=== PATIENT | male | born 1955 | race Caucasian/White ===

== ENCOUNTER 2021-03-30 00:29 | Inpatient (IN) ==
[2021-03-30] MEDS ORDERED: Heparin 1,000 UNIT/ML 10 ml (10,000 UNITS) CATHLAB/DIALYSIS ONE (00:50)
[2021-03-30] MEDS ORDERED: fentaNYL 100 mcg/2 ml 50 MCG/ML VIAL ONE (00:50)
[2021-03-30] MEDS ORDERED: VERAPAMIL 2.5 MG/ML 2 ML VIAL ** 5 mg/2 ml ONE (00:50)
[2021-03-30] MEDS ORDERED: Midazolam 5 mg/5 ml VIAL 1 mg/ml 5 ml VIAL (5 mg) ONE ×2 (00:50→05:42)
[2021-03-30] MEDS ORDERED: nitroGLYCERIN DRIP 25,000 MCG/250 ML BTL ONE (00:51)
[2021-03-30] MEDS ORDERED: Heparin 2 UNITS/ML 1000 mls 2,000 ML IV ONE (00:51)
[2021-03-30] MEDS ORDERED: Iohexol 350 (CONTRAST) 200 ML MDV IV ONE ×2 (00:51→01:11)
[2021-03-30] MEDS ORDERED: Lidocaine 1% VIAL 10 MG/ML VIAL ONE (00:51)
[2021-03-30] MEDS ORDERED: Heparin - STEMI 5,000 UNITS/ML 1 ml VIAL IV ONE (01:03)
[2021-03-30 01:16] LABS: Hematocrit 37 % (42-52); Hemoglobin 11.4 g/dL (14.0-18.0); Mean Corpuscular HGB Conc 31 g/dL (31-36); Mean Corpuscular Hemoglobin 32 pg (27-31); Mean Corpuscular Volume 102 fL (80-94); Mean Platelet Volume 10.3 fL (7.4-10.4); Platelet Count 160 10^3/uL (150-450); Red Blood Count 3.57 10^6 /uL (4.18-5.48); Red Cell Distribution Width 15 % (10-15); White Blood Count 19.3 10^3/uL (3.5-10.8)
[2021-03-30 01:34] LABS: ALT 149 U/L (7-52); AST 189 U/L (13-39); Albumin 2.8 g/dL (3.2-5.2); Albumin/Globulin Ratio 1.1 (1-3); Alkaline Phosphatase 140 U/L (35-149); Blood Urea Nitrogen 20 mg/dL (6-24); Calcium 8.3 mg/dL (8.6-10.3); Chloride 102 mmol/L (101-111); Globulin 2.6 g/dL (2-4); Glucose 446 mg/dL (70-100); LDL Cholesterol Direct 62 mg/dL; Magnesium 2.5 mg/dL (1.9-2.7); Potassium 4.2 mmol/L (3.5-5.0); Sodium 134 mmol/L (135-145); Total Protein 5.4 g/dL (6.4-8.9)
[2021-03-30 01:34] LABS: Rapid COVID-19 Molecular Undetected (Undetected)
[2021-03-30] MEDS ORDERED: Bivalirudin 250 MG VIAL ONE (01:38)
[2021-03-30 01:39] LABS: Activated Partial Thrombo Time 49.9 seconds (26.0-38.0); INR 1.3 (0.86-1.15)
[2021-03-30 01:52] LABS: Troponin I 4.06 ng/mL (<0.03)
[2021-03-30 01:54] LABS: Anion Gap 18 mmol/L (2-11); CO2 Carbon Dioxide 14 mmol/L (22-32)
[2021-03-30] MEDS ORDERED: Phenylephrine 40 mcg/mL 10mL (400mcg) SYRINGE ONE (02:03)
[2021-03-30] MEDS ORDERED: Propofol 10 mg/ml 100 ML BTL 100 ML ONE ×2 (02:17→14:20)
[2021-03-30 02:25] LABS: PCO2 Arterial 50 mmHg (35-45); PO2 Arterial 104 mmHg (80-100)
[2021-03-30] MEDS ORDERED: NS 0.9% 1000 ml BAG 1,000 ML IV SCH (02:45)
[2021-03-30] MEDS ORDERED: Furosemide 20 mg/2 ml IV VIAL IV ONE ×2 (02:47→03:58)
[2021-03-30] MEDS ORDERED: Furosemide 20 mg/2 ml IV VIAL ONE (03:14)
[2021-03-30 03:43] LABS: Burr Cells 3+
[2021-03-30 03:50] LABS: Hematocrit 38 % (42-52); Hemoglobin 12.4 g/dL (14.0-18.0); Mean Corpuscular HGB Conc 32 g/dL (31-36); Mean Corpuscular Hemoglobin 31 pg (27-31); Mean Corpuscular Volume 97 fL (80-94); Platelet Count 224 10^3/uL (150-450); Red Blood Count 3.96 10^6 /uL (4.18-5.48); Red Cell Distribution Width 14 % (10-15); White Blood Count 29.6 10^3/uL (3.5-10.8)
[2021-03-30] MEDS ORDERED: Dextrose 50% Syringe 50 ml 25 GM/50 ML SYRINGE IV PUSH PRN (03:53)
[2021-03-30 03:55] LABS: PCO2 Arterial 45 mmHg (35-45); PO2 Arterial 114 mmHg (80-100)
[2021-03-30 03:56] LABS: ABS Basophils 0.1 10^3/ul (0-0.2); ABS Eosinophils 0.5 10^3/ul (0-0.6); ABS Lymphocytes 7.7 10^3/ul (1.0-4.8); ABS Monocytes 1.1 10^3/ul (0-0.8); Eosinophil % 2.4 %; Lymphocyte % 39.7 %; Nucleated Red Blood Cells % 0.1
[2021-03-30 03:58] LABS: ABS Basophils 0.1 10^3/ul (0-0.2); ABS Eosinophils 0.2 10^3/ul (0-0.6); ABS Lymphocytes 2.2 10^3/ul (1.0-4.8); ABS Monocytes 1.7 10^3/ul (0-0.8); ABS Neutrophils 25.2 10^3/ul (1.5-7.7); Eosinophil % 0.8 %; Lymphocyte % 7.5 %
[2021-03-30] MEDS ORDERED: Propofol 10 mg/ml 100 ML BTL 100 ML IV SCH ×2 (04:00→16:00)
[2021-03-30 04:07] LABS: ALT 267 U/L (7-52); Albumin 3.2 g/dL (3.2-5.2); Albumin/Globulin Ratio 1.2 (1-3); Alkaline Phosphatase 189 U/L (35-149); Blood Urea Nitrogen 21 mg/dL (6-24); CO2 Carbon Dioxide 18 mmol/L (22-32); Calcium 7.9 mg/dL (8.6-10.3); Chloride 101 mmol/L (101-111); Globulin 2.7 g/dL (2-4); Glucose 405 mg/dL (70-100); Sodium 130 mmol/L (135-145); Total Protein 5.9 g/dL (6.4-8.9)
[2021-03-30 04:25] LABS: Troponin I 7.66 ng/mL (<0.03)
[2021-03-30 04:44] LABS: Anion Gap 11 mmol/L (2-11)
[2021-03-30] MEDS: Chlorhexidine MOUTHWASH 0.12% 15 ML UDC TOPICAL SCH ×5 (05:03→20:53)
[2021-03-30] MEDS: Midazolam 50 MG VIAL IV DRIP 50 ML IV SCH ×3 (05:10→19:19)
[2021-03-30] MEDS ORDERED: Midazolam 5 mg/5 ml VIAL 1 mg/ml 5 ml VIAL (5 mg) IV SLOW PU ONE (05:38)
[2021-03-30 06:24] LABS: Potassium Redraw 5.7 mmol/L (3.5-5.0)
[2021-03-30 07:21] LABS: Glucose Confirmatory 409 mg/dL (70-100)
[2021-03-30] MEDS: Famotidine IV 10 MG/ML 2 ml VIAL (20 mg) IV SLOW PU SCH ×2 (07:54→20:53)
[2021-03-30] MEDS ORDERED: Etomidate 20 mg/10 ml 2 MG/ML 10 ml VIAL ONE (09:11)
[2021-03-30] MEDS ORDERED: Rocuronium 50 mg VIAL 10 mg/ml 5 ml VIAL (50 mg) ONE (09:11)
[2021-03-30] MEDS ORDERED: Perflutren Lipid Microsphere 3 ML VIAL ONE (10:18)
[2021-03-30] MEDS ORDERED: Meperidine 50 mg/ml SYRINGE 1 ml IV ONE ×2 (10:26→13:42)
[2021-03-30] MEDS ORDERED: Meperidine 50 mg/ml SYRINGE 1 ml IV PRN (10:37)
[2021-03-30 13:23] LABS: PCO2 Arterial 38 mmHg (35-45); PO2 Arterial 88 mmHg (80-100)
[2021-03-30] MEDS ORDERED: Meperidine 50 mg/ml SYRINGE 1 ml ONE (13:45)
[2021-03-30 14:04] LABS: ALT 256 U/L (7-52); Albumin 3.6 g/dL (3.2-5.2); Albumin/Globulin Ratio 1.2 (1-3); Alkaline Phosphatase 168 U/L (35-149); Blood Urea Nitrogen 26 mg/dL (6-24); CO2 Carbon Dioxide 20 mmol/L (22-32); Calcium 8.4 mg/dL (8.6-10.3); Chloride 104 mmol/L (101-111); Glucose 268 mg/dL (70-100); Sodium 136 mmol/L (135-145); Total Protein 6.6 g/dL (6.4-8.9)
[2021-03-30 14:05] LABS: Anion Gap 12 mmol/L (2-11)
[2021-03-30 15:18] LABS: Potassium Redraw 4.9 mmol/L (3.5-5.0)
[2021-03-30] MEDS: Enoxaparin 40 MG/0.4 ML SYR SUBCUT SCH (17:05)
[2021-03-30] MEDS ORDERED: Piperacillin/Tazobac ADVAN 3.375 GM in NS 0.9% 100 ml BAG 100 ML IV ONE (17:30)
[2021-03-30] MEDS ORDERED: Zosyn per Pharmacy NOTE FOLLOW UP SCH (18:00)
[2021-03-30] MEDS: Propofol 10 mg/ml 100 ML BTL 100 ML IV SCH (19:30)
[2021-03-30 23:44] LABS: Urine Appearance Turbid; Urine Bilirubin Negative (Negative); Urine Blood 3+ (Negative); Urine Color Yellow; Urine Glucose Negative (Negative); Urine Ketones Negative (Negative); Urine Nitrite Negative (Negative); Urine Protein 2+(100 mg/dL) (Negative); Urine Specific Gravity 1.032 (1.002-1.030); Urine Urobilinogen Negative (Negative)
[2021-03-30 23:59] LABS: Urine Bacteria Absent (Absent); Urine Red Blood Cell 3+(>10/hpf) (Absent); Urine White Blood Cell 2+(11-20/hpf) (Absent)
[2021-03-31] MEDS: ZOSYN 3.375 GM Q8H per EXTENDED INFUSION IV SCH ×3 (00:25→16:18)
[2021-03-31] MEDS: Chlorhexidine MOUTHWASH 0.12% 15 ML UDC TOPICAL SCH ×6 (00:28→20:55)
[2021-03-31] MEDS ORDERED: Norepinephrine 16MCG/ML IVPRE 4,000 MCG/250 ML BAG IV ONE (00:55)
[2021-03-31] MEDS ORDERED: Norepinephrine 16MCG/ML IVPRE 4,000 MCG/250 ML BAG IV SCH (01:00)
[2021-03-31] MEDS ORDERED: fentaNYL 100 mcg/2 ml 50 MCG/ML VIAL IV SLOW PU PRN ×2 (01:31→02:23)
[2021-03-31] MEDS ORDERED: fentaNYL 100 mcg/2 ml 50 MCG/ML VIAL ONE (01:34)
[2021-03-31] MEDS: Propofol 10 mg/ml 100 ML BTL 100 ML IV SCH ×4 (02:02→16:19)
[2021-03-31] MEDS ORDERED: Midazolam 2 mg/2 ml VIAL 1 mg/ml 2 ml VIAL (2 mg) IV SLOW PU ONE (02:24)
[2021-03-31] MEDS: Acetaminophen IV 1 GM/100ML 100 ML IV PRN ×2 (02:47→13:51)
[2021-03-31] MEDS: Midazolam 50 MG VIAL IV DRIP 50 ML IV SCH ×3 (04:28→19:25)
[2021-03-31 04:41] LABS: ABS Basophils 0.1 10^3/ul (0-0.2); ABS Eosinophils 0.1 10^3/ul (0-0.6); ABS Lymphocytes 2.6 10^3/ul (1.0-4.8); ABS Monocytes 1.5 10^3/ul (0-0.8); ABS Neutrophils 14.8 10^3/ul (1.5-7.7); Eosinophil % 0.8 %; Hematocrit 34 % (42-52); Hemoglobin 11.1 g/dL (14.0-18.0); Lymphocyte % 13.8 %; Mean Corpuscular HGB Conc 33 g/dL (31-36); Mean Corpuscular Hemoglobin 31 pg (27-31); Mean Corpuscular Volume 94 fL (80-94); Mean Platelet Volume 9.8 fL (7.4-10.4); Platelet Count 189 10^3/uL (150-450); Red Blood Count 3.59 10^6 /uL (4.18-5.48); Red Cell Distribution Width 14 % (10-15); White Blood Count 19.1 10^3/uL (3.5-10.8)
[2021-03-31 04:57] LABS: Albumin 2.8 g/dL (3.2-5.2); Albumin/Globulin Ratio 1.1 (1-3); Globulin 2.5 g/dL (2-4); Total Bilirubin 0.5 mg/dL (0.2-1.0); Total Protein 5.3 g/dL (6.4-8.9)
[2021-03-31] MEDS: Norepinephrine 16MCG/ML IVPRE 4,000 MCG/250 ML BAG IV SCH ×2 (07:22→16:18)
[2021-03-31] MEDS: Famotidine IV 10 MG/ML 2 ml VIAL (20 mg) IV SLOW PU SCH ×2 (08:38→20:55)
[2021-03-31] MEDS ORDERED: Meperidine 50 mg/ml SYRINGE 1 ml ONE (13:28)
[2021-03-31] MEDS ORDERED: Meperidine 50 mg/ml SYRINGE 1 ml IV ONE (13:29)
[2021-03-31] MEDS ORDERED: NS 0.9% 100 ml BAG 100 ML ONE (19:20)
[2021-03-31] MEDS: Enoxaparin 40 MG/0.4 ML SYR SUBCUT SCH (20:55)
[2021-03-31 23:05] LABS: PCO2 Arterial 27 mmHg (35-45); PO2 Arterial 78 mmHg (80-100)
[2021-03-31] MEDS ORDERED: fentaNYL INFUSION 50 mcg/mL VL 2,500 MCG/50 ML VIAL IV SCH (23:45)
[2021-04-01] MEDS ORDERED: NS 0.9% 100 ml BAG 100 ML ONE (00:34)
[2021-04-01] MEDS: Chlorhexidine MOUTHWASH 0.12% 15 ML UDC TOPICAL SCH ×7 (00:36→23:08)
[2021-04-01] MEDS: ZOSYN 3.375 GM Q8H per EXTENDED INFUSION IV SCH ×4 (00:36→23:07)
[2021-04-01] MEDS ORDERED: Senna TAB 8.6 mg TAB PO PRN (01:07)
[2021-04-01] MEDS ORDERED: Magnesium Hydroxide LIQ 30 ML UDC PO PRN (01:07)
[2021-04-01] MEDS ORDERED: Docusate LIQ 100 MG/10 ML UDC PO PRN (01:07)
[2021-04-01] MEDS: Midazolam 50 MG VIAL IV DRIP 50 ML IV SCH (01:24)
[2021-04-01] MEDS: Acetaminophen IV 1 GM/100ML 100 ML IV PRN ×3 (03:03→20:07)
[2021-04-01 04:21] LABS: PCO2 Arterial 29 mmHg (35-45); PO2 Arterial 91 mmHg (80-100)
[2021-04-01 05:16] LABS: ABS Basophils 0.1 10^3/ul (0-0.2); ABS Eosinophils 0.1 10^3/ul (0-0.6); ABS Lymphocytes 2.4 10^3/ul (1.0-4.8); ABS Monocytes 1.1 10^3/ul (0-0.8); ABS Neutrophils 12.1 10^3/ul (1.5-7.7); Eosinophil % 0.9 %; Hematocrit 33 % (42-52); Hemoglobin 10.8 g/dL (14.0-18.0); Mean Corpuscular HGB Conc 33 g/dL (31-36); Mean Corpuscular Hemoglobin 31 pg (27-31); Mean Corpuscular Volume 93 fL (80-94); Mean Platelet Volume 9.8 fL (7.4-10.4); Nucleated Red Blood Cells % 0.1; Platelet Count 200 10^3/uL (150-450); Red Blood Count 3.51 10^6 /uL (4.18-5.48); Red Cell Distribution Width 14 % (10-15); White Blood Count 15.8 10^3/uL (3.5-10.8)
[2021-04-01 05:33] LABS: Albumin 2.9 g/dL (3.2-5.2); Albumin/Globulin Ratio 1.1 (1-3); Calcium 8.1 mg/dL (8.6-10.3); Globulin 2.6 g/dL (2-4); Magnesium 1.9 mg/dL (1.9-2.7); Phosphorus 3.9 mg/dL (2.5-5.0); Potassium 4.1 mmol/L (3.5-5.0); Total Bilirubin 0.4 mg/dL (0.2-1.0); Total Protein 5.5 g/dL (6.4-8.9)
[2021-04-01 05:42] LABS: INR 1.44 (0.86-1.15)
[2021-04-01] MEDS ORDERED: Magnesium Sulfate IV 1GM/100ML 1 GM/100 ML BAG IV ONE (06:04)
[2021-04-01] MEDS: Famotidine IV 10 MG/ML 2 ml VIAL (20 mg) IV SLOW PU SCH ×2 (08:06→19:53)
[2021-04-01] MEDS ORDERED: Midazolam 5 mg/5 ml VIAL 1 mg/ml 5 ml VIAL (5 mg) IV SLOW PU PRN (11:41)
[2021-04-01] MEDS: Enoxaparin 40 MG/0.4 ML SYR SUBCUT SCH (19:53)
[2021-04-02] MEDS ORDERED: Midazolam 2 mg/2 ml VIAL 1 mg/ml 2 ml VIAL (2 mg) IV SLOW PU ONE (02:14)
[2021-04-02] MEDS ORDERED: Furosemide 40 mg/4 ml IV VIAL IV SLOW PU ONE (02:16)
[2021-04-02 04:35] LABS: ABS Basophils 0.1 10^3/ul (0-0.2); ABS Eosinophils 0.1 10^3/ul (0-0.6); ABS Neutrophils 11.8 10^3/ul (1.5-7.7); Eosinophil % 0.7 %; Hematocrit 35 % (42-52); Hemoglobin 11.6 g/dL (14.0-18.0); Lymphocyte % 13.3 %; Mean Corpuscular HGB Conc 33 g/dL (31-36); Mean Corpuscular Hemoglobin 31 pg (27-31); Mean Corpuscular Volume 93 fL (80-94); Mean Platelet Volume 9.7 fL (7.4-10.4); Platelet Count 208 10^3/uL (150-450); Red Blood Count 3.77 10^6 /uL (4.18-5.48); Red Cell Distribution Width 14 % (10-15)
[2021-04-02 04:52] LABS: Albumin 3.1 g/dL (3.2-5.2); Calcium 8.6 mg/dL (8.6-10.3); Globulin 3.2 g/dL (2-4); Phosphorus 3.6 mg/dL (2.5-5.0); Potassium 3.8 mmol/L (3.5-5.0); Total Bilirubin 0.6 mg/dL (0.2-1.0); Total Protein 6.3 g/dL (6.4-8.9)
[2021-04-02 05:17] LABS: INR 1.35 (0.86-1.15)
[2021-04-02] MEDS: Chlorhexidine MOUTHWASH 0.12% 15 ML UDC TOPICAL SCH ×5 (05:18→20:19)
[2021-04-02] MEDS ORDERED: KCL 20 MEQ/100 ML IVPREMIX 20 MEQ/100 ML BAG IV ONE (06:34)
[2021-04-02] MEDS ORDERED: EPINEPHrine SYR 0.1MG/ML 10 ml SYRINGE ONE (06:37)
[2021-04-02] MEDS ORDERED: Amiodarone 360 MG IVPREMIX 360 MG/200 ML BAG IV ONE (07:17)
[2021-04-02 07:21] LABS: PCO2 Arterial 34 mmHg (35-45)
[2021-04-02 07:24] LABS: PO2 Arterial 55 mmHg (80-100)
[2021-04-02] MEDS: Acetaminophen IV 1 GM/100ML 100 ML IV PRN (07:42)
[2021-04-02] MEDS: ZOSYN 3.375 GM Q8H per EXTENDED INFUSION IV SCH ×2 (09:15→16:35)
[2021-04-02] MEDS: Famotidine IV 10 MG/ML 2 ml VIAL (20 mg) IV SLOW PU SCH ×2 (09:26→20:20)
[2021-04-02] MEDS ORDERED: Amiodarone 360 MG IVPREMIX 360 MG/200 ML BAG IV SCH (09:30)
[2021-04-02] MEDS: Amiodarone 360 MG IVPREMIX 360 MG/200 ML BAG IV SCH ×2 (12:07→22:58)
[2021-04-02] MEDS: Enoxaparin 40 MG/0.4 ML SYR SUBCUT SCH (20:19)
[2021-04-03] MEDS ORDERED: NS 0.9% 100 ml BAG 100 ML ONE (01:35)
[2021-04-03] MEDS: Chlorhexidine MOUTHWASH 0.12% 15 ML UDC TOPICAL SCH ×7 (01:37→22:43)
[2021-04-03] MEDS: ZOSYN 3.375 GM Q8H per EXTENDED INFUSION IV SCH ×4 (01:37→22:43)
[2021-04-03 04:13] LABS: ABS Basophils 0.1 10^3/ul (0-0.2); ABS Eosinophils 0.1 10^3/ul (0-0.6); ABS Lymphocytes 1.9 10^3/ul (1.0-4.8); ABS Monocytes 1.5 10^3/ul (0-0.8); ABS Neutrophils 13.7 10^3/ul (1.5-7.7); Eosinophil % 0.3 %; Hematocrit 37 % (42-52); Hemoglobin 12.3 g/dL (14.0-18.0); Lymphocyte % 10.8 %; Mean Corpuscular HGB Conc 34 g/dL (31-36); Mean Corpuscular Hemoglobin 31 pg (27-31); Mean Corpuscular Volume 92 fL (80-94); Mean Platelet Volume 9.7 fL (7.4-10.4); Nucleated Red Blood Cells % 0.1; Platelet Count 247 10^3/uL (150-450); Red Blood Count 3.97 10^6 /uL (4.18-5.48); Red Cell Distribution Width 14 % (10-15); White Blood Count 17.2 10^3/uL (3.5-10.8)
[2021-04-03 04:31] LABS: Albumin 3.1 g/dL (3.2-5.2); Calcium 8.8 mg/dL (8.6-10.3); Globulin 3.1 g/dL (2-4); Magnesium 2.2 mg/dL (1.9-2.7); Phosphorus 2.8 mg/dL (2.5-5.0); Potassium 4.1 mmol/L (3.5-5.0); Total Bilirubin 0.5 mg/dL (0.2-1.0); Total Protein 6.2 g/dL (6.4-8.9)
[2021-04-03] MEDS: Famotidine IV 10 MG/ML 2 ml VIAL (20 mg) IV SLOW PU SCH ×2 (08:15→20:23)
[2021-04-03] MEDS: Amiodarone 400 mg TAB PO SCH ×2 (10:19→20:23)
[2021-04-03] MEDS ORDERED: Vancomycin per Pharmacy 1 EA NOTE FOLLOW UP SCH (12:00)
[2021-04-03] MEDS: Amiodarone 360 MG IVPREMIX 360 MG/200 ML BAG IV SCH (13:24)
[2021-04-03 14:20] LABS: Hematocrit 38 % (42-52); Hemoglobin 12.6 g/dL (14.0-18.0)
[2021-04-03 14:51] LABS: PCO2 Arterial 23 mmHg (35-45); PO2 Arterial 96 mmHg (80-100)
[2021-04-03] MEDS ORDERED: Morphine 2 MG/ML SYRINGE IV PRN (17:26)
[2021-04-03] MEDS ORDERED: Dexmedetomidine 1,000 MCG in NS 0.9% 250 ml 240 ML IV SCH (19:00)
[2021-04-04] MEDS: Acetaminophen IV 1 GM/100ML 100 ML IV PRN (02:36)
[2021-04-04 04:11] LABS: Hematocrit 34 % (42-52); Hemoglobin 11.3 g/dL (14.0-18.0); Mean Corpuscular HGB Conc 33 g/dL (31-36); Mean Corpuscular Hemoglobin 31 pg (27-31); Mean Corpuscular Volume 93 fL (80-94); Mean Platelet Volume 9.5 fL (7.4-10.4); Platelet Count 218 10^3/uL (150-450); Red Blood Count 3.66 10^6 /uL (4.18-5.48); Red Cell Distribution Width 14 % (10-15); White Blood Count 15.1 10^3/uL (3.5-10.8)
[2021-04-04 04:34] LABS: Albumin 2.8 g/dL (3.2-5.2); Calcium 8.7 mg/dL (8.6-10.3); Globulin 2.8 g/dL (2-4); Potassium 3.9 mmol/L (3.5-5.0); Total Bilirubin 0.6 mg/dL (0.2-1.0); Total Protein 5.6 g/dL (6.4-8.9)
[2021-04-04] MEDS: Chlorhexidine MOUTHWASH 0.12% 15 ML UDC TOPICAL SCH ×6 (04:41→22:03)
[2021-04-04 04:58] LABS: ABS Basophils 0.1 10^3/ul (0-0.2); ABS Lymphocytes 1.7 10^3/ul (1.0-4.8); ABS Neutrophils 11.2 10^3/ul (1.5-7.7); Eosinophil % 0.3 %; Lymphocyte % 11.6 %; Nucleated Red Blood Cells % 0.1
[2021-04-04] MEDS: Famotidine IV 10 MG/ML 2 ml VIAL (20 mg) IV SLOW PU SCH ×2 (07:50→19:30)
[2021-04-04] MEDS: Amiodarone 400 mg TAB PO SCH ×2 (07:50→19:30)
[2021-04-04] MEDS: ZOSYN 3.375 GM Q8H per EXTENDED INFUSION IV SCH ×3 (07:50→22:03)
[2021-04-04 10:50] LABS: Phosphorus 3.3 mg/dL (2.5-5.0)
[2021-04-05 03:58] LABS: Hematocrit 33 % (42-52); Mean Corpuscular HGB Conc 33 g/dL (31-36); Mean Corpuscular Hemoglobin 31 pg (27-31); Mean Corpuscular Volume 94 fL (80-94); Mean Platelet Volume 9.9 fL (7.4-10.4); Platelet Count 214 10^3/uL (150-450); Red Blood Count 3.54 10^6 /uL (4.18-5.48); Red Cell Distribution Width 14 % (10-15); White Blood Count 16.1 10^3/uL (3.5-10.8)
[2021-04-05 03:59] LABS: ABS Basophils 0.1 10^3/ul (0-0.2); ABS Eosinophils 0.1 10^3/ul (0-0.6); ABS Lymphocytes 2.1 10^3/ul (1.0-4.8); ABS Monocytes 2.1 10^3/ul (0-0.8); ABS Neutrophils 11.8 10^3/ul (1.5-7.7); Eosinophil % 0.3 %
[2021-04-05 04:13] LABS: Albumin/Globulin Ratio 1.2 (1-3); Calcium 8.7 mg/dL (8.6-10.3); Globulin 2.6 g/dL (2-4); Total Bilirubin 0.6 mg/dL (0.2-1.0); Total Protein 5.6 g/dL (6.4-8.9)
[2021-04-05] MEDS: Chlorhexidine MOUTHWASH 0.12% 15 ML UDC TOPICAL SCH ×5 (04:19→20:49)
[2021-04-05] MEDS: Amiodarone 400 mg TAB PO SCH ×2 (08:21→20:57)
[2021-04-05] MEDS: ZOSYN 3.375 GM Q8H per EXTENDED INFUSION IV SCH ×2 (08:22→16:45)
[2021-04-05] MEDS: Famotidine IV 10 MG/ML 2 ml VIAL (20 mg) IV SLOW PU SCH ×2 (08:23→20:57)
[2021-04-05] MEDS ORDERED: fentaNYL 100 mcg/2 ml 50 MCG/ML VIAL ONE (11:54)
[2021-04-05] MEDS ORDERED: fentaNYL 100 mcg/2 ml 50 MCG/ML VIAL IV SLOW PU ONE (12:51)
[2021-04-05 19:08] LABS: Urine Appearance Cloudy; Urine Bacteria Absent (Absent); Urine Bilirubin Negative (Negative); Urine Blood 3+ (Negative); Urine Glucose Negative (Negative); Urine Ketones Negative (Negative); Urine Nitrite Negative (Negative); Urine Protein 2+(100 mg/dL) (Negative); Urine Red Blood Cell 3+(>10/hpf) (Absent); Urine Specific Gravity 1.026 (1.002-1.030); Urine Urobilinogen Negative (Negative); Urine White Blood Cell 3+(>20/hpf) (Absent)
[2021-04-05 19:17] LABS: Urine Color Red
[2021-04-06] MEDS: Chlorhexidine MOUTHWASH 0.12% 15 ML UDC TOPICAL SCH ×7 (00:54→23:26)
[2021-04-06 04:41] LABS: Hematocrit 36 % (42-52); Hemoglobin 11.7 g/dL (14.0-18.0); Mean Corpuscular HGB Conc 33 g/dL (31-36); Mean Corpuscular Hemoglobin 30 pg (27-31); Mean Corpuscular Volume 93 fL (80-94); Mean Platelet Volume 9.5 fL (7.4-10.4); Platelet Count 235 10^3/uL (150-450); Red Blood Count 3.83 10^6 /uL (4.18-5.48); Red Cell Distribution Width 14 % (10-15); White Blood Count 19.2 10^3/uL (3.5-10.8)
[2021-04-06 04:55] LABS: Calcium 8.9 mg/dL (8.6-10.3); Magnesium 2.1 mg/dL (1.9-2.7); Phosphorus 3.9 mg/dL (2.5-5.0)
[2021-04-06] MEDS ORDERED: Amiodarone 400 mg TAB NG TUBE SCH (08:25)
[2021-04-06] MEDS ORDERED: Magnesium Hydroxide LIQ 30 ML UDC NG TUBE PRN (08:30)
[2021-04-06] MEDS: Amiodarone 400 mg TAB NG TUBE SCH ×2 (08:47→20:16)
[2021-04-06] MEDS: Famotidine IV 10 MG/ML 2 ml VIAL (20 mg) IV SLOW PU SCH ×2 (08:48→20:16)
[2021-04-06] MEDS ORDERED: ZOSYN 3.375 GM x ONE DOSE over 30 miuntes IV (10:30)
[2021-04-06] MEDS ORDERED: Zosyn per Pharmacy NOTE FOLLOW UP SCH (11:00)
[2021-04-06] MEDS: ZOSYN 3.375 GM Q8H per EXTENDED INFUSION IV SCH ×2 (15:14→23:23)
[2021-04-07] MEDS: Acetaminophen IV 1 GM/100ML 100 ML IV PRN (03:11)
[2021-04-07] MEDS: Chlorhexidine MOUTHWASH 0.12% 15 ML UDC TOPICAL SCH ×2 (04:20→08:26)
[2021-04-07] MEDS: ZOSYN 3.375 GM Q8H per EXTENDED INFUSION IV SCH (07:23)
[2021-04-07] MEDS: Amiodarone 400 mg TAB NG TUBE SCH (08:26)
[2021-04-07] MEDS: Famotidine IV 10 MG/ML 2 ml VIAL (20 mg) IV SLOW PU SCH (08:27)
[2021-04-07] MEDS ORDERED: Ondansetron 4 mg VIAL 2 MG/ML 2 ml VIAL IV PRN (10:19)
[2021-04-07] MEDS ORDERED: LORazepam 2 mg VIAL 1 ml IV PUSH PRN (10:23)
[2021-04-07] MEDS ORDERED: Lorazepam PYXIS KEY PRN (10:23)
[2021-04-07 10:50] VITALS: BP 100/55
[2021-04-07] MEDS ORDERED: Morphine PCA ADULT 5 MG/ML 30 ML PCA SCH (11:00)
[2021-04-07] MEDS ORDERED: Morphine 10 MG/ML VIAL (1 ml) IV ONE (12:33)
[2021-04-07] MEDS ORDERED: Morphine 10 MG/ML VIAL (1 ml) ONE (12:34)
[2021-04-07] MEDS: LORazepam 2 mg VIAL 1 ml IV PUSH PRN ×3 (13:26→22:57)
[2021-04-07] MEDS: Atropine 1% (ORAL/SL) 15 ML BTL SL PRN (22:57)
[2021-04-08] MEDS: Atropine 1% (ORAL/SL) 15 ML BTL SL PRN ×2 (03:13→08:02)
[2021-04-08] MEDS ORDERED: Morphine PCA ADULT 5 MG/ML 30 ML PCA SCH ×3 (08:06→10:51)
[2021-04-08] MEDS ORDERED: Glycopyrrolate IV 0.2 MG/ML 1 ML VIAL IV SLOW PU ONE (08:38)
[2021-04-08] MEDS: Atropine 1% (ORAL/SL) 15 ML BTL SL SCH ×7 (09:27→22:47)
[2021-04-08] MEDS ORDERED: Glycopyrrolate IV 0.2 MG/ML 20 ML VIAL IV SLOW PU PRN (14:59)
[2021-04-08] MEDS: LORazepam 2 mg VIAL 1 ml IV PUSH PRN ×3 (15:57→22:47)
[2021-04-08] MEDS: Acetaminophen IV 1 GM/100ML 100 ML IV PRN (22:56)
== END 2021-04-08 23:09 | disposition expired | DRG 246 ==
LOC: ED 00:29 → CHICATH 01:05 → ICU 03:49